=== PATIENT | female | born 1995 | race American Indian/Alaskan Native ===

== ENCOUNTER 2017-12-03 22:56 | Outpatient (CLI) | payer BC, MEDICAID ==
[2017-12-03 16:08] LABS: Bacteria,Urine 1+ /HPF (Negative); Bilirubin,Urine NEG (Negative); Blood,Urine NEG (Negative); Color,Urine Yellow (Yellow); Protein,Urine <15 mg/dL mg/dL (Negative); RBC,Urine < 1.0 /HPF (0.0-6.0); Urobilinogen,Urine < 2.0 mg/dL (<2.0)
--- NOTE | 2017-12-03 21:28 | Emergency Department Report ---
ED HPI - General Chief complaint: Abdominal Pain Stated complaint: CRAMPING PREG 19WKS Time Seen by Provider: 12/03/17 17:56 Source: patient Mode of arrival: Ambulatory Limitations: No Limitations - History of Present Illness Initial comments: This is a 22-year-old female nontoxic, well nourished in appearance, no acute signs of distress presents to the ED with c/o of pelvic pain. Patient stated she is about 19.5 weeks and follows [facility]. Patient stated her [facility] sent her to ED for evaualation of [place] contractions. Patient denies any vaginal bleeding. Patient denies any vaginal discharge or foul odor. Patient denies any nausea, vomiting, chest pain, shortness of breathe, fever, chills, headache, stiff neck, numbness, tingling. Patient denies any urinary symptoms. Patient denies any allergies or PMH. MD Complaint: "contractions", other (pelvic pain) Location: pelvis Radiation: none Severity: mild Severity scale (0 -10): 3 Quality: cramping Consistency: intermittent Improves with: none Worsens with: none Associated symptoms: other (pelvic pain). denies: nausea/vomiting, vaginal bleeding, vaginal discharge, abdominal pain, dysuria, headache, vision changes, malaise, dysparuenia, rash, seizure, shortness of breath, syncope, weakness Vaginal bleeding: none :: Yes Number of weeks : 20 Pre-ana luisa care: followed by OB, previous ultrasound confi - Related Data Allergies Allergy/AdvReac Type Severity Reaction Status Date / Time No Known Allergies Allergy Unverified 12/03/17 15:07 ED Review of Systems ROS: Stated complaint: CRAMPING PREG 19WKS Other details as noted in HPI Constitutional: denies: chills, fever Eyes: denies: eye pain, eye discharge, vision change ENT: denies: ear pain, throat pain Respiratory: denies: cough, shortness of breath, wheezing Cardiovascular: denies: chest pain, palpitations Endocrine: no symptoms reported Gastrointestinal: denies: abdominal pain, nausea, diarrhea Genitourinary: denies: urgency, dysuria, discharge Musculoskeletal: denies: back pain, joint swelling, arthralgia Skin: denies: rash, lesions Neurological: denies: headache, weakness, paresthesias Psychiatric: denies: anxiety, depression Hematological/Lymphatic: denies: easy bleeding, easy bruising ED Past Medical Hx - Past Medical History Previous Medical History?: No - Surgical History Past Surgical History?: No - Social History Smoking Status: Never Smoker Substance Use Type: None ED Physical Exam - General Limitations: No Limitations General appearance: alert, in no apparent distress - Head Head exam: Present: atraumatic, normocephalic - Eye Eye exam: Present: normal appearance - ENT ENT exam: Present: mucous membranes moist - Neck Neck exam: Present: normal inspection - Respiratory Respiratory exam: Present: normal lung sounds bilaterally. Absent: respiratory distress - Cardiovascular Cardiovascular Exam: Present: regular rate, normal rhythm, normal heart sounds. Absent: bradycardia, tachycardia, irregular rhythm, systolic murmur, diastolic murmur, rubs, gallop - GI/Abdominal GI/Abdominal exam: Present: soft, normal bowel sounds. Absent: distended, tenderness, guarding, rebound, rigid, diminished bowel sounds - Rectal Rectal exam: Present: deferred - Extremities Exam Extremities exam: Present: normal inspection, full ROM, normal capillary refill. Absent: tenderness - Back Exam Back exam: Present: normal inspection, full ROM. Absent: tenderness, CVA tenderness (R), CVA tenderness (L), muscle spasm, paraspinal tenderness, vertebral tenderness, rash noted - Neurological Exam Neurological exam: Present: alert, oriented X3, normal gait - Psychiatric Psychiatric exam: Present: normal affect, normal mood - Skin Skin exam: Present: warm, dry, intact, normal color. Absent: rash ED Course Vital Signs 12/03/17 15:03 Temperature 98.7 F Pulse Rate 108 H Respiratory 18 Rate Blood Pressure 120/68 O2 Sat by Pulse 98 Oximetry - Reevaluation(s) Reevaluation #1: 12/03/17 21:29 Patient is speaking in full sentences with no signs of distress noted. ED Medical Decision Making - Medical Decision Making This is a 22-year-old female presents with pelvic pain and . Patient is stable and was examined by me. Normal abdominal exam. US OB obtained and pending results. A preliminary report has been provided to me by US tech due to unable to send US films to Mick radiologist. Both witbin normal limts of heart rate. Ua obtained. Quantative serum test obtained. Patient was sent to Labor and Delivery for further evaluation for possible [place] contractions. Critical care attestation.: If time is entered above; I have spent that time in minutes in the direct care of this critically ill patient, excluding procedure time. ED Disposition Clinical Impression: Pelvic pain affecting Qualifiers: Trimester: third trimester Qualified Code(s): O26.893 - Other specified related conditions, third trimester Disposition: [id number]/TX-70 ANOTHER TYPE HLTHCARE Is pt being admited?: No Condition: Stable Instructions: (ED), Abdominal Pain (ED) Additional Instructions: Follow-up with a alarm signaler doctor in 3-5 days or if symptoms worsen and continue return to emergency room as soon as possible. Referrals: PRIMARY CARE, [Primary Care Provider] - 3-5 Days
[2017-12-03 23:17] VITALS: BP 107/63
--- NOTE | 2017-12-04 00:07 | Ultrasound Report ---
FINAL REPORT PROCEDURE: US OB > = 14 WK FETUS ADD GEST TECHNIQUE: Real-time transabdominal sonography of the uterus, placenta, amniotic fluid, adnexa, and fetus was performed with image documentation. Measurements were obtained to determine age/size. M-mode Doppler was used to document heartbeat. CPT 77791 HISTORY: abd pain; preg. COMPARISON: No prior studies are available for comparison. FINDINGS: Diamniotic dichorionic twin intrauterine gestation Baby B: GENERAL: Position: Cephalic Placental position: Posterior, without previa. Amniotic fluid volume: Normal. MATERNAL: Uterus: Within normal limits. Cervical length: 4 cm. Internal Os: Closed. FETUS: Heart rate and rhythm: 149 beats per minute, regular MEASUREMENTS: BPD: 4.3 centimeters corresponding to 19 weeks and 0 days HC: 16.3 centimeters corresponding to 19 weeks and 0 days AC: 13.9 centimeters corresponding to 19 weeks and 2 days FL: 3.0 centimeters corresponding to 19 weeks and 1 day Mean Gestational Age (composite criteria): 19 weeks and 1 day Ratio biometry: Normal. Estimated Weight: 279 grams. Estimated Due Date: 04/28/2018 IMPRESSION: Twin intrauterine gestation. Baby B mean gestational age corresponds to 19 weeks and 1 day. Expected date of delivery 04/28/2018.
--- NOTE | 2017-12-04 08:29 | Ultrasound Report ---
FINAL REPORT EXAM: US OB > = 14 WEEKS FETUS HISTORY: pain,cramping with TECHNIQUE: Obstetrical ultrasound performed. Twin . Report for twin A PRIORS: none FINDINGS: Twin A: position: Cephalic Placenta: Posterior Amniotic fluid volume: Normal heart rate: 141 beats per minute measurements: BPD 4.63 cm- 20 weeks 0 days HC 17.17 cm- 19 weeks 5 days AC 13.82 cm- 19 weeks 2 days FL 3.09 cm- 19 weeks 4 days HC/AC ratio: 1.24 (1.09-1.26) Composite ultrasound age: 19 weeks 5 days which corresponds to CHUCK of 04/24/2018 Clinical age 19 weeks 4 days which corresponds to CHUCK of 04/25/2018 Estimated weight 293 g which is 38th percentile for clinical age. Survey of anatomy: Ventricles, stomach, cord insertion, four-chamber heart, kidneys, bladder, three-vessel cord, spine, diaphragm are visualized and demonstrate no significant abnormality. cerebellum/posterior fossa are poorly visualized and evaluated due to position. IMPRESSION: There is a single live intrauterine . Clinical age is 19 weeks 4 days which corresponds to CHUCK of 04/25/2018. Growth is appropriate with measurements as indicated above. Growth is also concordant with twin B. Twin is slightly larger. No significant abnormality seen but cerebellum/posterior fossa not well visualized due to position.
== END 2017-12-04 00:05 | disposition home or self-care (01) ==
LOC: TRG 22:56 → EDSTATUS 22:57 → TRG 22:59
PROVIDERS: ATTEND Obstetrics & Gynecology
DX: O26.892 Other specified pregnancy related conditions, second trimester (principal); O13.2 Gestational [pregnancy-induced] hypertension without significant proteinuria, second trimester; O99.512 Diseases of the respiratory system complicating pregnancy, second trimester; J45.909 Unspecified asthma, uncomplicated; Z3A.19 19 weeks gestation of pregnancy
CPT/HCPCS: 36415; 59025; 76805; 76810; 81001; 84702